=== PATIENT | male | born 1995 | race Caucasian/White ===

== ENCOUNTER 2019-06-16 09:27 | Inpatient (IN) | payer OTHER ==
[2019-06-16 09:50] VITALS: BMI 41.3
--- NOTE | 2019-06-16 10:31 | HP ---
"COWS - Scale Resting Pulse: 1= [place] 81-100 Sweatin=Flushed/Facial Moisture Restless Observation: 0= Sits Still Pupil Size: 0= Normal to Room Light Bone or Joint Aches: 2= Severe Diffuse Aches Runny Nose/ Eye Tearin= Runny Nose/Eyes GI Upset > 30mins: 1= Stomach Cramp Tremor Observation: 0= None Yawning Observation: 0= None Anxiety or Irritability: 2=Irritable/Anxious Goose Flesh Skin: 0=Smooth Skin COWS Score: 10 CIWA Score Nausea/Vomitin-No Nausea/No Vomiting Muscle Tremors: None Anxiety: 4-Mod. Anxious/Guarded Agitation: 1-Slight > Activity Paroxysmal Sweats: 4-Forehead w/Sweat Beads Orientation: 0-Oriented Tacttile Disturbances: 0-None Auditory Disturbances: 0-None Visual Disturbances: 2-Mild Sensitivity Headache: 0-None Present CIWA-Ar Total Score: 11 - Admission Criteria OASAS Guidelines: Admission for Medically Managed Detox: Requires at least one of the followin. CIWA greater than 12 2. Seizures within the past 24 hours 3. Delirium tremens within the past 24 hours 4. Hallucinations within the past 24 hours 5. Acute intervention needed for co occurring medical disorder 6. Acute intervention needed for co occurring psychiatric disorder 7. Severe withdrawal that cannot be handled at a lower level of care (continued vomiting, continued diarrhea, abnormal vital signs) requiring intravenous medication and/or fluids 8. Admission ROS [facility] Allergies/Adverse Reactions: Allergies Allergy/AdvReac Type Severity Reaction Status Date / Time Penicillins Allergy Swelling Verified 06/16/19 09:40 History of Present Illness: pt states he was referred by [facility] , reports use of heroin and alcohol heroin since 2 years ago , percocet 7-8 yrs ago after foot frx , current daily use 1 bundle heroin via inhalation , latest use 3 am , denies od . etoh - 2 x 6-pk and 1 bottle vodka /day since 6-7 mo ago , first age of use 11 . starts drinking in the mornings, denies blackouts/ seizures , tremors occasional fentanyl- denies oxy- admits to use . bzo - denies bup -reports tried illicit use 2 days ago tobacco : 1.5 ppd PMHx : denies pshx : foot frx R w/ orif 2/2 fall on ice . shx : homeless , unemployed , finances habit from friends / family , denies legal issues , denies dui/ dwi , no children . Search Terms: audrey vazquez, 1995 Search Date: 06/16/2019 10:25:26 AM This report was requested by: Princess Ojeda | Reference #: [id number] There are no results for the search terms that you entered. Exam Limitations: No Limitations - Ebola screening Have you traveled outside of the country in the last 21 days: No Have you had contact with anyone from an Ebola affected area: No Do you have a fever: No - Review of Systems Constitutional: Loss of Appetite EENT: reports: No Symptoms Reported Respiratory: reports: SOB with Exertion Cardiac: reports: No Symptoms Reported GI: reports: Constipated : reports: Other (hesitancy) Musculoskeletal: reports: See HPI, Back Pain, Muscle Pain Integumentary: reports: No Symptoms Reported Neuro: reports: No Symptoms reported Endocrine: reports: No Symptoms Reported Psychiatric: reports: Orientated x3, other (adhd) Patient History - Smoking Cessation Smoking history: Current every day smoker Have you smoked in the past 12 months: Yes Hx Chewing Tobacco Use: No Initiated information on smoking cessation: Yes 'Breaking Loose' booklet given: 06/16/19 - Substances abused Alcohol Substance route: Oral Frequency: Daily Amount used: 1 bottle colby diaz & (2) 6 pk heineken Age of first use: 11 Date of last use: 06/16/19 Heroin Substance route: Inhalation Frequency: Daily Amount used: 1 - 1 1/2 bundle Age of first use: 21 Date of last use: 06/16/19 Admission Physical Exam BHS - Vital Signs Vital Signs: Vital Signs - 24 hr 06/16/19 09:40 Temperature 97.3 F L Pulse Rate 95 H Respiratory 20 Rate Blood Pressure 161/104 H - Physical General Appearance: Yes: Mild Distress, Intoxicated, Sweating, Anxious HEENTM: Yes: EOMI, Hearing grossly Normal, Normocephalic, Normal Voice Respiratory: Yes: Chest Non-Tender, Lungs Clear, Normal Breath Sounds, No Respiratory Distress, No Accessory Muscle Use Neck: Yes: No masses,lesions,Nodules, Trachea in good position Cardiology: Yes: Regular Rhythm, Regular Rate, S1, S2 Abdominal: Yes: Normal Bowel Sounds, Non Tender, Flat, Soft Musculoskeletal: Yes: full range of Motion, Gait Steady Extremities: Yes: Normal Capillary Refill, Normal Inspection, Normal Range of Motion, Non-Tender Neurological: Yes: Fully Oriented, Alert, Motor Strength 5/5, Normal Mood/Affect Integumentary: Yes: Warm - Diagnostic (1) Alcohol use disorder Current Visit: Yes Status: Chronic (2) Opioid dependence Current Visit: Yes Status: Chronic Qualifiers: Substance use status: uncomplicated Qualified Code(s): F11.20 - Opioid dependence, uncomplicated (3) Nicotine dependence Current Visit: Yes Status: Chronic Qualifiers: Nicotine product type: cigarettes Breathalyzer - Breathalyzer Breathalyzer: 0.013 Urine Drug Screen - Test Device Lot number: [id number] Expiration date: 02/13/21 - Control Is test valid?: Yes - Results Drug screen NEGATIVE: No Urine drug screen results: FEN-Fentanyl, MOP-Opiates, OXY-Oxycodone, BZO- Benzodiazepines, BUP-Suboxone Inpatient Rehab Admission - Rehab Decision to Admit Inpatient rehab admission?: No"
[2019-06-16] MEDS ORDERED: MAGNESIUM CITRATE 300 ML BOTTLE PO PRN (10:45)
[2019-06-16] MEDS ORDERED: IBUPROFEN 400 MG TABLET (FP) PO PRN (10:45)
[2019-06-16] MEDS ORDERED: MAG HYDROX/AL HYDROX/SIMETH 30 ML UNIT-DOSE CUP PO PRN (10:45)
[2019-06-16] MEDS ORDERED: MAGNESIUM HYDROX 2400MG/30ML ORAL SUSPENSION 30 ML CUP PO PRN (10:45)
[2019-06-16] MEDS ORDERED: MENTHOL/PHENOL 1 EACH UD MM PRN (10:45)
[2019-06-16] MEDS ORDERED: BISMUTH SUBSALICYLATE 262 MG/15 ML BTL PO PRN (10:45)
[2019-06-16] MEDS ORDERED: ACETAMINOPHEN 325 MG TABLET (FP) PO PRN ×2 (10:45)
[2019-06-16] MEDS ORDERED: cloNIDine HCL 0.1 MG TABLET PO PRN (10:46)
[2019-06-16] MEDS ORDERED: METHADONE HCL 10 MG TABLET (FOR DETOX USE ONLY) PO ONE (14:00)
[2019-06-16] MEDS: diazePAM 5 MG TABLET PO SCH ×2 (14:03→22:26)
[2019-06-16 16:12] LABS: HEMATOCRIT 45.9 % (35.4-49); HEMOGLOBIN 16.2 GM/dL (11.7-16.9); MCH 30.4 pg (25.7-33.7); MCHC 35.4 g/dl (32.0-35.9); MEAN CELL VOLUME 85.9 fl (80-96); MEAN PLT VOLUME 7.1 fl (7.5-11.1); PLATELET COUNT 288 K/MM3 (134-434); RBC 5.34 M/mm3 (4.00-5.60); RDW 12.9 % (11.9-15.9); WHITE BLOOD COUNT 9.1 K/mm3 (4.0-10.0)
[2019-06-16 16:29] LABS: ALBUMIN 4.2 g/dl (3.4-5.0); BILIRUBIN,TOTAL 0.4 mg/dL (0.2-1); CALCIUM 9.1 mg/dL (8.5-10.1); CREATININE 0.8 mg/dL (0.55-1.3); POTASSIUM 3.5 mmol/L (3.5-5.1); TOT PROT 7.2 g/dl (6.4-8.2)
[2019-06-16] MEDS: NICOTINE 21 MG/24 HOURS TOPICAL PATCH TD SCH (16:38)
[2019-06-16] MEDS: NICOTINE POLACRILEX 4 MG GUM BUC PRN (16:39)
[2019-06-16] MEDS: hydrOXYzine PAMOATE 25 MG CAPSULE (FP) PO PRN (16:40)
[2019-06-16] MEDS: THIAMINE HCL 100 MG TABLET (FP) PO SCH (22:26)
[2019-06-17] MEDS: diazePAM 5 MG TABLET PO SCH ×3 (05:22→21:43)
[2019-06-17] MEDS: NICOTINE POLACRILEX 4 MG GUM BUC PRN ×4 (05:24→18:35)
[2019-06-17] MEDS ORDERED: METHADONE HCL 5 MG TABLET (FOR DETOX USE ONLY) ONE (08:45)
[2019-06-17] MEDS ORDERED: METHADONE HCL 10 MG TABLET (FOR DETOX USE ONLY) ONE (08:46)
[2019-06-17] MEDS: NICOTINE 21 MG/24 HOURS TOPICAL PATCH TD SCH (09:11)
[2019-06-17] MEDS: PRENATAL VITAMINS W/ FOLIC ACID TABLET (FP) PO SCH (09:12)
[2019-06-17] MEDS ORDERED: METHADONE (DETOX) 20 MG, METHADONE (DETOX) 5 MG PO ONE (10:00)
[2019-06-17] MEDS: hydrOXYzine PAMOATE 25 MG CAPSULE (FP) PO PRN ×2 (11:47→18:35)
--- NOTE | 2019-06-17 14:28 | PN ---
S CIWA - CIWA Score Nausea/Vomitin-Mild Nausea/No Vomiting Muscle Tremors: 1-None Visible, but [place] Anxiety: 1-Mildly Anxious Agitation: 1-Slight > Activity Paroxysmal Sweats: 3 Orientation: 0-Oriented Tacttile Disturbances: 1-Very Mild Itch/Numbness Auditory Disturbances: 0-None Visual Disturbances: 0-None Headache: 0-None Present CIWA-Ar Total Score: 8 BHS COWS - Scale Resting Pulse: 1= [place] 81-100 Sweatin= Chills/Flushing Restless Observation: 1= Difficult to Sit Still Pupil Size: 1= Pupils >than Normal Bone or Joint Aches: 1= Mild Discomfort Runny Nose/ Eye Tearin= None GI Upset > 30mins: 1= Stomach Cramp Tremor Observation of Outstretched Hands: 1= Tremor [place], Not Seen Yawning Observation: 0= None Anxiety or Irritability: 1=Feels Anxious/Irritable Goose Flesh Skin: 0=Smooth Skin COWS Score: 8 [facility] Progress Note (SOAP) Subjective: interrupted sleep, sweats, Objective: 06/17/19 14:27 Vital Signs Temperature 97.9 F 06/17/19 13:50 Pulse Rate 87 06/17/19 13:50 Respiratory Rate 18 06/17/19 13:50 Blood Pressure 131/93 06/17/19 13:50 O2 Sat by Pulse Oximetry (%) Laboratory Tests 06/16/19 06/16/19 06/16/19 14:00 14:00 14:00 WBC 9.1 RBC 5.34 Hgb 16.2 Hct 45.9 MCV 85.9 MCH 30.4 MCHC 35.4 RDW 12.9 Plt Count 288 MPV 7.1 L Sodium 137 Potassium 3.5 Chloride 102 Carbon Dioxide 27 Anion Gap 8 BUN 13.0 Creatinine 0.8 Est GFR (CKD-EPI)AfAm 142.89 Est GFR (CKD-EPI)NonAf 123.29 Random Glucose 100 Calcium 9.1 Total Bilirubin 0.4 AST 17 ALT 41 Alkaline Phosphatase 74 Total Protein 7.2 Albumin 4.2 RPR Titer Nonreactive pt aox3 , cooperative in nad ambulating Assessment: 06/17/19 14:28 withdrawal sx's Plan: cont. detox increase fluids
[2019-06-17] MEDS: THIAMINE HCL 100 MG TABLET (FP) PO SCH (21:43)
[2019-06-18] MEDS: diazePAM 5 MG TABLET PO SCH ×2 (05:42→17:35)
--- NOTE | 2019-06-18 09:55 | PN ---
[facility] CIWA - CIWA Score Nausea/Vomitin-No Nausea/No Vomiting Muscle Tremors: 2 Anxiety: 2 Agitation: 3 Paroxysmal Sweats: 2 Orientation: 0-Oriented Tacttile Disturbances: 0-None Auditory Disturbances: 0-None Visual Disturbances: 0-None Headache: 0-None Present CIWA-Ar Total Score: 9 [facility]HS COWS - Scale Resting Pulse: 0= [place] 80 or Below Sweatin= Chills/Flushing Restless Observation: 1= Difficult to Sit Still Pupil Size: 0= Normal to Room Light Bone or Joint Aches: 2= Severe Diffuse Aches Runny Nose/ Eye Tearin= Runny Nose/Eyes GI Upset > 30mins: 0= None Tremor Observation of Outstretched Hands: 1= Tremor [place], Not Seen Yawning Observation: 1= 1-2x During Session Anxiety or Irritability: 1=Feels Anxious/Irritable Goose Flesh Skin: 0=Smooth Skin COWS Score: 9 [facility] Progress Note (SOAP) Subjective: sweats anxiety shakes irritable agitation body aches Objective: 06/18/19 09:56 Vital Signs Temperature 97.9 F 06/18/19 09:24 Pulse Rate 80 06/18/19 09:24 Respiratory Rate 18 06/18/19 09:24 Blood Pressure 136/79 06/18/19 09:24 O2 Sat by Pulse Oximetry (%) Laboratory Tests 06/16/19 06/16/19 06/16/19 14:00 14:00 14:00 WBC 9.1 RBC 5.34 Hgb 16.2 Hct 45.9 MCV 85.9 MCH 30.4 MCHC 35.4 RDW 12.9 Plt Count 288 MPV 7.1 L Sodium 137 Potassium 3.5 Chloride 102 Carbon Dioxide 27 Anion Gap 8 BUN 13.0 Creatinine 0.8 Est GFR (CKD-EPI)AfAm 142.89 Est GFR (CKD-EPI)NonAf 123.29 Random Glucose 100 Calcium 9.1 Total Bilirubin 0.4 AST 17 ALT 41 Alkaline Phosphatase 74 Total Protein 7.2 Albumin 4.2 RPR Titer Nonreactive labs noted aaox3 ambulating no acute distress Assessment: 06/18/19 09:57 withdrawals Plan: continue detox increase fluids
[2019-06-18] MEDS ORDERED: METHADONE HCL 10 MG TABLET (FOR DETOX USE ONLY) PO ONE (10:00)
[2019-06-18] MEDS: PRENATAL VITAMINS W/ FOLIC ACID TABLET (FP) PO SCH (10:21)
[2019-06-18] MEDS: NICOTINE 21 MG/24 HOURS TOPICAL PATCH TD SCH (10:22)
[2019-06-18] MEDS: hydrOXYzine PAMOATE 25 MG CAPSULE (FP) PO PRN ×2 (12:22→22:54)
[2019-06-18] MEDS: NICOTINE POLACRILEX 4 MG GUM BUC PRN ×2 (12:22→17:36)
[2019-06-18] MEDS: diazePAM 5 MG TABLET PO PRN ×2 (13:01→22:52)
[2019-06-18] MEDS ORDERED: cloNIDine HCL 0.1 MG TABLET PO SCH (22:00)
[2019-06-18] MEDS: MELATONIN 5 MG TABLETS PO PRN (22:53)
[2019-06-18] MEDS: THIAMINE HCL 100 MG TABLET (FP) PO SCH (22:53)
[2019-06-19] MEDS ORDERED: diazePAM 5 MG TABLET PO ONE (06:00)
[2019-06-19] MEDS ORDERED: METHADONE (DETOX) 10 MG, METHADONE (DETOX) 5 MG PO ONE (10:00)
[2019-06-19] MEDS ORDERED: METHADONE HCL 10 MG TABLET (FOR DETOX USE ONLY) ONE (10:19)
[2019-06-19] MEDS ORDERED: METHADONE HCL 5 MG TABLET (FOR DETOX USE ONLY) ONE (10:19)
[2019-06-19] MEDS: PRENATAL VITAMINS W/ FOLIC ACID TABLET (FP) PO SCH (10:39)
[2019-06-19] MEDS: NICOTINE 21 MG/24 HOURS TOPICAL PATCH TD SCH (10:40)
[2019-06-19] MEDS: hydrOXYzine PAMOATE 25 MG CAPSULE (FP) PO PRN (10:46)
[2019-06-19] MEDS: NICOTINE POLACRILEX 4 MG GUM BUC PRN (11:06)
[2019-06-19] MEDS: diazePAM 5 MG TABLET PO PRN ×2 (13:28→22:40)
[2019-06-19] MEDS: METHOCARBAMOL 500 MG TABLET PO PRN ×2 (13:28→22:38)
[2019-06-19] MEDS ORDERED: cloNIDine HCL 0.1 MG TABLET PO PRN (16:03)
--- NOTE | 2019-06-19 16:06 | PN ---
[facility] CIWA - CIWA Score Nausea/Vomitin-No Nausea/No Vomiting Muscle Tremors: 2 Anxiety: 2 Agitation: 1-Slight > Activity Paroxysmal Sweats: 2 Orientation: 0-Oriented Tacttile Disturbances: 0-None Auditory Disturbances: 0-None Visual Disturbances: 0-None Headache: 0-None Present CIWA-Ar Total Score: 7 BHS COWS - Scale Resting Pulse: 1= [place] 81-100 Sweatin= Chills/Flushing Restless Observation: 0= Sits Still Pupil Size: 0= Normal to Room Light Bone or Joint Aches: 1= Mild Discomfort Runny Nose/ Eye Tearin= None GI Upset > 30mins: 1= Stomach Cramp Tremor Observation of Outstretched Hands: 2= Slight Tremor Visible Yawning Observation: 0= None Anxiety or Irritability: 2=Irritable/Anxious Goose Flesh Skin: 0=Smooth Skin COWS Score: 8 [facility] Progress Note (SOAP) Subjective: Feels ok, medication working Objective: 06/19/19 16:02 Last Vital Signs Temp Pulse Resp BP Pulse Ox 97.7 F 86 18 148/77 06/19/19 14:00 06/19/19 14:00 06/19/19 14:00 06/19/19 14:00 Elevated b/p: denies htn (started on clonidine prn) Laboratory Tests 06/16/19 06/16/19 06/16/19 14:00 14:00 14:00 WBC 9.1 RBC 5.34 Hgb 16.2 Hct 45.9 MCV 85.9 MCH 30.4 MCHC 35.4 RDW 12.9 Plt Count 288 MPV 7.1 L Sodium 137 Potassium 3.5 Chloride 102 Carbon Dioxide 27 Anion Gap 8 BUN 13.0 Creatinine 0.8 Est GFR (CKD-EPI)AfAm 142.89 Est GFR (CKD-EPI)NonAf 123.29 Random Glucose 100 Calcium 9.1 Total Bilirubin 0.4 AST 17 ALT 41 Alkaline Phosphatase 74 Total Protein 7.2 Albumin 4.2 RPR Titer Nonreactive Labs reviewed Assessment: 06/19/19 16:05 Withdrawal sxs Plan: Continue detox Encouraged PO water intake Elevated b/p: denies htn; most likely due to withdrawal, start clonidine 0.1mg PO q8hr prn if b/p > 140/90
[2019-06-19] MEDS: THIAMINE HCL 100 MG TABLET (FP) PO SCH (22:38)
[2019-06-19] MEDS: MELATONIN 5 MG TABLETS PO PRN (22:38)
[2019-06-20] MEDS ORDERED: METHADONE HCL 10 MG TABLET (FOR DETOX USE ONLY) PO ONE (10:00)
[2019-06-20] MEDS: NICOTINE 21 MG/24 HOURS TOPICAL PATCH TD SCH (10:30)
[2019-06-20] MEDS: PRENATAL VITAMINS W/ FOLIC ACID TABLET (FP) PO SCH (10:30)
[2019-06-20] MEDS: diazePAM 5 MG TABLET PO PRN ×2 (10:34→19:48)
--- NOTE | 2019-06-20 11:54 | PN ---
[facility] CIWA - CIWA Score Nausea/Vomitin-Mild Nausea/No Vomiting Muscle Tremors: 1-None Visible, but [place] Anxiety: 2 Agitation: 2 Paroxysmal Sweats: No Perspiration Orientation: 0-Oriented Tacttile Disturbances: 1-Very Mild Itch/Numbness Auditory Disturbances: 0-None Visual Disturbances: 0-None Headache: 1-Very Mild CIWA-Ar Total Score: 8 BHS COWS - Scale Resting Pulse: 2= [place] 101-120 Sweatin= No chills or [place] Restless Observation: 1= Difficult to Sit Still Pupil Size: 1= Pupils >than Normal Bone or Joint Aches: 1= Mild Discomfort Runny Nose/ Eye Tearin= Nasal Congestion GI Upset > 30mins: 1= Stomach Cramp Tremor Observation of Outstretched Hands: 1= Tremor [place], Not Seen Yawning Observation: 0= None Anxiety or Irritability: 2=Irritable/Anxious Goose Flesh Skin: 0=Smooth Skin COWS Score: 10 S Progress Note (SOAP) Subjective: alert,irritable,anxious,interrupted sleep,pain in the body Objective: 06/20/19 11:53 Vital Signs Temperature 97.7 F 06/20/19 09:20 Pulse Rate 106 H 06/20/19 09:20 Respiratory Rate 18 06/20/19 09:20 Blood Pressure 153/77 06/20/19 09:20 O2 Sat by Pulse Oximetry (%) Assessment: 06/20/19 11:53 withdrawal symptom Plan: continue detox methadone regimen,discharge in am
[2019-06-20] MEDS: hydrOXYzine PAMOATE 25 MG CAPSULE (FP) PO PRN ×2 (13:25→22:19)
[2019-06-20] MEDS: NICOTINE POLACRILEX 4 MG GUM BUC PRN (19:48)
[2019-06-20] MEDS: METHOCARBAMOL 500 MG TABLET PO PRN (22:19)
[2019-06-20] MEDS: THIAMINE HCL 100 MG TABLET (FP) PO SCH (22:19)
[2019-06-20] MEDS: MELATONIN 5 MG TABLETS PO PRN (22:19)
[2019-06-21] MEDS ORDERED: METHADONE HCL 5 MG TABLET (FOR DETOX USE ONLY) PO ONE (06:00)
--- NOTE | 2019-06-21 08:31 | PN ---
BHS COWS - Scale Resting Pulse: 0= [place] 80 or Below Sweatin= No chills or Flushing Restless Observation: 0= Sits Still Pupil Size: 0= Normal to Room Light Bone or Joint Aches: 1= Mild Discomfort Runny Nose/ Eye Tearin= None GI Upset > 30mins: 0= None Tremor Observation of Outstretched Hands: 0= None Yawning Observation: 0= None Anxiety or Irritability: 1=Feels Anxious/Irritable Goose Flesh Skin: 0=Smooth Skin COWS Score: 2 [facility] Progress Note (SOAP) Subjective: alert,no complaint Objective: 06/21/19 08:30 Vital Signs Temperature 97.7 F 06/21/19 07:33 Pulse Rate 58 L 06/21/19 07:33 Respiratory Rate 18 06/21/19 07:33 Blood Pressure 136/75 06/21/19 07:33 O2 Sat by Pulse Oximetry (%) Assessment: 06/21/19 08:30 detox completed,no withdrawal symptom Plan: discharge today,follow up with after care program as arrangement
--- NOTE | 2019-06-21 08:34 | DS ---
[facility] Detox Discharge Summary Admission Date: 06/16/19 Discharge Date: 06/21/19 - History Present History: Opioid Dependence Additional Comments: follow up with after care program as arrangement Pertinent Past History: nicotine dependence - Physical Exam Results Vital Signs: Vital Signs Temperature 97.7 F 06/21/19 07:33 Pulse Rate 58 L 06/21/19 07:33 Respiratory Rate 18 06/21/19 07:33 Blood Pressure 136/75 06/21/19 07:33 O2 Sat by Pulse Oximetry (%) Pertinent Admission Physical Exam Findings: Vital Signs Temperature 97.7 F 06/21/19 07:33 Pulse Rate 58 L 06/21/19 07:33 Respiratory Rate 18 06/21/19 07:33 Blood Pressure 136/75 06/21/19 07:33 O2 Sat by Pulse Oximetry (%) Laboratory Last Values WBC 9.1 K/mm3 (4.0-10.0) 06/16/19 14:00 RBC 5.34 M/mm3 (4.00-5.60) 06/16/19 14:00 Hgb 16.2 GM/dL (11.7-16.9) 06/16/19 14:00 Hct 45.9 % (35.4-49) 06/16/19 14:00 MCV 85.9 fl (80-96) 06/16/19 14:00 MCH 30.4 pg (25.7-33.7) 06/16/19 14:00 MCHC 35.4 g/dl (32.0-35.9) 06/16/19 14:00 RDW 12.9 % (11.9-15.9) 06/16/19 14:00 Plt Count 288 K/MM3 (134-434) 06/16/19 14:00 MPV 7.1 fl (7.5-11.1) L 06/16/19 14:00 Sodium 137 mmol/L (136-145) 06/16/19 14:00 Potassium 3.5 mmol/L (3.5-5.1) 06/16/19 14:00 Chloride 102 mmol/L (98-107) 06/16/19 14:00 Carbon Dioxide 27 mmol/L (21-32) 06/16/19 14:00 Anion Gap 8 MMOL/L (8-16) 06/16/19 14:00 BUN 13.0 mg/dL (7-18) 06/16/19 14:00 Creatinine 0.8 mg/dL (0.55-1.3) 06/16/19 14:00 Est GFR (CKD-EPI)AfAm 142.89 06/16/19 14:00 Est GFR (CKD-EPI)NonAf 123.29 06/16/19 14:00 Random Glucose 100 mg/dL (74-106) 06/16/19 14:00 Calcium 9.1 mg/dL (8.5-10.1) 06/16/19 14:00 Total Bilirubin 0.4 mg/dL (0.2-1) 06/16/19 14:00 AST 17 U/L (15-37) 06/16/19 14:00 ALT 41 U/L (13-61) 06/16/19 14:00 Alkaline Phosphatase 74 U/L (45-117) 06/16/19 14:00 Total Protein 7.2 g/dl (6.4-8.2) 06/16/19 14:00 Albumin 4.2 g/dl (3.4-5.0) 06/16/19 14:00 RPR Titer Nonreactive (NONREACTIVE) 06/16/19 14:00 Vital Signs Temperature 97.7 F 06/21/19 07:33 Pulse Rate 58 L 06/21/19 07:33 Respiratory Rate 18 06/21/19 07:33 Blood Pressure 136/75 06/21/19 07:33 O2 Sat by Pulse Oximetry (%) - Treatment Hospital Course: Detox Protocol Followed, Detoxed Safely, Responded well, Discharged Condition Good - Medication Discharge Medications: Ambulatory Orders NK [No Known Home Medication] 06/16/19 - Diagnosis (1) Alcohol use disorder Current Visit: Yes Status: Chronic (2) Nicotine dependence Current Visit: Yes Status: Chronic Qualifiers: Nicotine product type: cigarettes (3) Opioid dependence Current Visit: Yes Status: Chronic Qualifiers: Substance use status: uncomplicated Qualified Code(s): F11.20 - Opioid dependence, uncomplicated - AMA Did Patient Leave Against Medical Advice: No
[2019-06-21 09:24] VITALS: BP 149/91; PULSE 75; TEMP 97.3
== END 2019-06-21 09:22 | disposition home or self-care (01) | DRG 773 ==
LOC: YASAS 09:27 → Y6N 11:19
PROVIDERS: ADMIT Allergy & Immunology; ATTEND Allergy & Immunology
PROC: HZ2ZZZZ Detoxification Services for Substance Abuse Treatment (ICD-10-PCS; principal; 2019-06-16)
DX: F11.23 Opioid dependence with withdrawal (principal); F10.230 Alcohol dependence with withdrawal, uncomplicated; F17.210 Nicotine dependence, cigarettes, uncomplicated; R03.0 Elevated blood-pressure reading, without diagnosis of hypertension; Z88.0 Allergy status to penicillin; Z56.0 Unemployment, unspecified; Z59.0 Homelessness
CPT/HCPCS: 36415; 80053; 85027; 86593; J0735

== ENCOUNTER 2020-07-07 23:12 | Inpatient (IN) | payer OTHER ==
[2020-07-07 20:00] VITALS: BMI 40.7
[~2020-07-07 23:12] MED LIST: ACETAMINOPHEN 325 MG TABLET (FP) PO PRN; BISMUTH SUBSALICYLATE 524 MG/30 ML UD PO PRN; IBUPROFEN 400 MG TABLET (FP) PO PRN; MAG HYDROX/AL HYDROX/SIMETH 30 ML UNIT-DOSE CUP PO PRN; MAGNESIUM CITRATE 300 ML BOTTLE PO PRN; MAGNESIUM HYDROX 2400MG/30ML ORAL SUSPENSION 30 ML CUP PO PRN; MENTHOL/PHENOL 1 EACH UD MM PRN; ONDANSETRON *ODT* 4 MG TABLET SL PRN; chlordiazePOXIDE HCL 25 MG CAPSULE PO PRN; cloNIDine HCL 0.1 MG TABLET PO PRN
[2020-07-07] MEDS ORDERED: METHADONE HCL 10 MG TABLET (FOR DETOX USE ONLY) PO ONE (23:55)
[2020-07-08] MEDS: chlordiazePOXIDE HCL 25 MG CAPSULE PO SCH ×5 (00:02→22:03)
[2020-07-08] MEDS ORDERED: METHADONE (DETOX) 20 MG, METHADONE (DETOX) 5 MG PO ONE (10:00)
[2020-07-08] MEDS: PRENATAL VITAMINS W/ FOLIC ACID TABLET (FP) PO SCH (10:32)
[2020-07-08] MEDS: NICOTINE 21 MG/24 HOURS TOPICAL PATCH TD SCH (10:33)
[2020-07-08] MEDS: NICOTINE POLACRILEX 2 MG GUM BUC PRN (10:34)
[2020-07-08 12:32] LABS: HEMATOCRIT 42.2 % (35.4-49); HEMOGLOBIN 14.6 GM/dL (11.7-16.9); MCH 29.8 pg (25.7-33.7); MCHC 34.5 g/dl (32.0-35.9); MEAN CELL VOLUME 86.4 fl (80-96); MEAN PLT VOLUME 7.1 fl (7.5-11.1); PLATELET COUNT 277 K/MM3 (134-434); RBC 4.88 M/mm3 (4.00-5.60); RDW 13.4 % (11.9-15.9); WHITE BLOOD COUNT 10.6 K/mm3 (4.0-10.0)
[2020-07-08 12:49] LABS: POTASSIUM 3.4 mmol/L (3.5-5.1)
[2020-07-08 13:03] LABS: ALBUMIN 3.6 g/dl (3.4-5.0); BLOOD UREA NITROGEN 9.4 mg/dL (7-18)
[2020-07-08 13:04] LABS: CALCIUM 8.5 mg/dL (8.5-10.1)
[2020-07-08 13:08] LABS: CREATININE 0.8 mg/dL (0.55-1.3)
[2020-07-08 13:09] LABS: BILIRUBIN,TOTAL 0.4 mg/dL (0.2-1); TOT PROT 6.3 g/dl (6.4-8.2)
[2020-07-08] MEDS ORDERED: POTASSIUM CHLORIDE TABS 20 MEQ TABLET.ER (FP) PO ONE (16:15)
[2020-07-08] MEDS: THIAMINE HCL 100 MG TABLET (FP) PO SCH (22:03)
[2020-07-08] MEDS: MELATONIN 5 MG TABLETS PO SCH (22:03)
[2020-07-09] MEDS: chlordiazePOXIDE HCL 25 MG CAPSULE PO SCH ×4 (05:41→22:00)
[2020-07-09] MEDS ORDERED: METHADONE HCL 10 MG TABLET (FOR DETOX USE ONLY) PO ONE (10:00)
[2020-07-09] MEDS: NICOTINE 21 MG/24 HOURS TOPICAL PATCH TD SCH (10:16)
[2020-07-09] MEDS: PRENATAL VITAMINS W/ FOLIC ACID TABLET (FP) PO SCH (10:17)
[2020-07-09 10:23] LABS: POTASSIUM 4.1 mmol/L (3.5-5.1)
[2020-07-09 10:25] LABS: BASO % 0.5 % (0-2.0); EOS % 3.8 % (0-4.5); HEMATOCRIT 41.9 % (35.4-49); HEMOGLOBIN 14.2 GM/dL (11.7-16.9); LYMPH % 39.7 % (8-40); MCH 29.7 pg (25.7-33.7); MCHC 33.9 g/dl (32.0-35.9); MEAN CELL VOLUME 87.5 fl (80-96); MONO % 7.6 % (3.8-10.2); NEUT % 48.4 % (42.8-82.8); PLATELET COUNT 241 K/MM3 (134-434); RBC 4.79 M/mm3 (4.00-5.60); RDW 13.7 % (11.9-15.9); WHITE BLOOD COUNT 6.5 K/mm3 (4.0-10.0)
[2020-07-09] MEDS: THIAMINE HCL 100 MG TABLET (FP) PO SCH (22:00)
[2020-07-09] MEDS: MELATONIN 5 MG TABLETS PO SCH (22:00)
[2020-07-09] MEDS: NICOTINE POLACRILEX 2 MG GUM BUC PRN (22:02)
[2020-07-10] MEDS ORDERED: chlordiazePOXIDE HCL 10 MG CAPSULE PO PRN
[2020-07-10] MEDS: chlordiazePOXIDE HCL 10 MG CAPSULE PO SCH ×4 (06:04→22:05)
[2020-07-10] MEDS: NICOTINE POLACRILEX 2 MG GUM BUC PRN (07:06)
[2020-07-10] MEDS ORDERED: METHADONE HCL 5 MG TABLET (FOR DETOX USE ONLY) ONE (09:03)
[2020-07-10] MEDS ORDERED: METHADONE HCL 10 MG TABLET (FOR DETOX USE ONLY) ONE (09:03)
[2020-07-10] MEDS ORDERED: METHADONE (DETOX) 10 MG, METHADONE (DETOX) 5 MG PO ONE (10:00)
[2020-07-10] MEDS: NICOTINE 21 MG/24 HOURS TOPICAL PATCH TD SCH (10:08)
[2020-07-10] MEDS: PRENATAL VITAMINS W/ FOLIC ACID TABLET (FP) PO SCH (10:08)
[2020-07-10] MEDS: METHOCARBAMOL 500 MG TABLET PO PRN (22:05)
[2020-07-10] MEDS: MELATONIN 5 MG TABLETS PO SCH (22:05)
[2020-07-10] MEDS: THIAMINE HCL 100 MG TABLET (FP) PO SCH (22:05)
[2020-07-11] MEDS: chlordiazePOXIDE HCL 10 MG CAPSULE PO SCH ×2 (05:31→17:19)
[2020-07-11] MEDS ORDERED: METHADONE HCL 10 MG TABLET (FOR DETOX USE ONLY) PO ONE (10:00)
[2020-07-11] MEDS: NICOTINE 21 MG/24 HOURS TOPICAL PATCH TD SCH (10:20)
[2020-07-11] MEDS: cloNIDine HCL 0.1 MG TABLET PO SCH ×2 (10:21→21:10)
[2020-07-11] MEDS: PRENATAL VITAMINS W/ FOLIC ACID TABLET (FP) PO SCH (10:21)
[2020-07-11] MEDS: NICOTINE POLACRILEX 2 MG GUM BUC PRN (10:23)
[2020-07-11] MEDS: METHOCARBAMOL 500 MG TABLET PO PRN (11:56)
[2020-07-11] MEDS: MELATONIN 5 MG TABLETS PO SCH (21:10)
[2020-07-11] MEDS: THIAMINE HCL 100 MG TABLET (FP) PO SCH (21:10)
[2020-07-12] MEDS ORDERED: chlordiazePOXIDE HCL 10 MG CAPSULE PO ONE (05:00)
[2020-07-12] MEDS ORDERED: METHADONE HCL 5 MG TABLET (FOR DETOX USE ONLY) PO ONE (06:00)
[2020-07-12 09:17] VITALS: BP 125/74; PULSE 78; TEMP 98.1
[2020-07-12] MEDS: NICOTINE 21 MG/24 HOURS TOPICAL PATCH TD SCH (09:21)
[2020-07-12] MEDS: PRENATAL VITAMINS W/ FOLIC ACID TABLET (FP) PO SCH (09:21)
[2020-07-12] MEDS: cloNIDine HCL 0.1 MG TABLET PO SCH (09:21)
== END 2020-07-12 11:00 | disposition home or self-care (01) | DRG 773 ==
LOC: ASASADMIT 23:12 → Y6N 23:36
PROVIDERS: ADMIT Allergy & Immunology; ATTEND Allergy & Immunology
PROC: HZ2ZZZZ Detoxification Services for Substance Abuse Treatment (ICD-10-PCS; principal; 2020-07-07)
DX: F11.23 Opioid dependence with withdrawal (principal); F10.230 Alcohol dependence with withdrawal, uncomplicated; F17.210 Nicotine dependence, cigarettes, uncomplicated; D72.819 Decreased white blood cell count, unspecified; M54.5 Low back pain; G89.28 Other chronic postprocedural pain; R74.01 Elevation of levels of liver transaminase levels; Z88.0 Allergy status to penicillin; Z59.0 Homelessness
CPT/HCPCS: 36415; 80053; 84132; 84460; 85025; 85027; 86780; 93005; 93010; C9803; J0735; U0003

== ENCOUNTER 2022-02-22 18:40 | Inpatient (IN) | payer OTHER ==
[2022-02-22 19:38] VITALS: BMI 41.8
[2022-02-22] MEDS ORDERED: MAG HYDROX/AL HYDROX/SIMETH 30 ML UNIT-DOSE CUP PO PRN (19:51)
[2022-02-22] MEDS ORDERED: chlordiazePOXIDE HCL 25 MG CAPSULE PO PRN (19:51)
[2022-02-22] MEDS ORDERED: ACETAMINOPHEN 325 MG TABLET (FP) PO PRN ×2 (19:51)
[2022-02-22] MEDS ORDERED: methaDONE HCL 10 MG TABLET (FOR DETOX USE ONLY) PO ONE (19:51)
[2022-02-22] MEDS ORDERED: LOPERAMIDE HCL 2 MG CAPSULE PO PRN (19:51)
[2022-02-22] MEDS ORDERED: BENZOCAINE/MENTHOL (CHLORASEPTIC ) LOZENGE MM PRN (19:51)
[2022-02-22] MEDS ORDERED: DICYCLOMINE HCL 10 MG CAPSULE PO PRN (19:51)
[2022-02-22] MEDS ORDERED: BISMUTH SUBSALICYLATE 524 MG/30 ML PO PRN (19:51)
[2022-02-22] MEDS ORDERED: IBUPROFEN 400 MG TABLET (FP) PO PRN (19:51)
[2022-02-22] MEDS ORDERED: NALOXONE HCL (KLOXXADO) 8 MG SPRAY NS PRN (19:51)
[2022-02-22] MEDS ORDERED: MAGNESIUM HYDROX 2400MG/30ML ORAL SUSPENSION 30 ML CUP PO PRN (19:51)
[2022-02-22] MEDS ORDERED: MAGNESIUM CITRATE 300 ML BOTTLE PO PRN (19:51)
[2022-02-22] MEDS: THIAMINE HCL 100 MG TABLET (FP) PO SCH (21:00)
[2022-02-22] MEDS: cloNIDine HCL 0.1 MG TABLET PO PRN (21:45)
[2022-02-22] MEDS: METHOCARBAMOL 500 MG TABLET PO PRN (21:45)
[2022-02-22] MEDS: MELATONIN 5 MG TABLETS PO SCH (21:50)
[2022-02-22] MEDS: chlordiazePOXIDE HCL 25 MG CAPSULE PO SCH (23:54)
[2022-02-23] MEDS: chlordiazePOXIDE HCL 25 MG CAPSULE PO SCH ×4 (05:16→22:07)
[2022-02-23 09:07] LABS: HEMATOCRIT 41.9 % (35.4-49); HEMOGLOBIN 14.8 GM/dL (11.7-16.9); MCH 29.1 pg (25.7-33.7); MCHC 35.3 g/dl (32.0-35.9); MEAN CELL VOLUME 82.6 fl (80-96); MEAN PLT VOLUME 6.2 fl (7.5-11.1); PLATELET COUNT 242 10^3/uL (134-434); RBC 5.08 M/mm3 (4.00-5.60); RDW 13.2 % (11.9-15.9); WHITE BLOOD COUNT 8.1 K/mm3 (4.0-10.0)
[2022-02-23] MEDS ORDERED: methaDONE HCL 10 MG TABLET (FOR DETOX USE ONLY) ONE (09:11)
[2022-02-23 09:31] LABS: BLOOD UREA NITROGEN 13.6 mg/dL (7-18); CALCIUM 8.7 mg/dL (8.5-10.1)
[2022-02-23 09:32] LABS: ALBUMIN 3.4 g/dl (3.4-5.0)
[2022-02-23 09:35] LABS: CREATININE 0.7 mg/dL (0.55-1.3)
[2022-02-23 09:36] LABS: BILIRUBIN,TOTAL 0.5 mg/dL (0.2-1); TOT PROT 6.5 g/dl (6.4-8.2)
[2022-02-23] MEDS: PRENATAL VITAMINS W/ FOLIC ACID TABLET (FP) PO SCH (10:54)
[2022-02-23] MEDS: NICOTINE 7 MG/24 HOURS TOPICAL PATCH TD SCH (10:55)
[2022-02-23] MEDS: NICOTINE 10 MG CARTRIDGE (INHALER) IH PRN ×2 (14:58→20:26)
[2022-02-23] MEDS: cloNIDine HCL 0.1 MG TABLET PO PRN (15:12)
[2022-02-23] MEDS: METHOCARBAMOL 500 MG TABLET PO PRN (18:25)
[2022-02-23] MEDS: THIAMINE HCL 100 MG TABLET (FP) PO SCH (22:06)
[2022-02-23] MEDS: MELATONIN 5 MG TABLETS PO SCH (22:06)
[2022-02-24] MEDS: chlordiazePOXIDE HCL 25 MG CAPSULE PO SCH ×4 (05:24→22:09)
[2022-02-24] MEDS: METHOCARBAMOL 500 MG TABLET PO PRN (05:26)
[2022-02-24] MEDS ORDERED: methaDONE HCL 10 MG TABLET (FOR DETOX USE ONLY) PO ONE (10:00)
[2022-02-24] MEDS: IBUPROFEN 600 MG TABLET (FP) PO PRN ×2 (11:00→17:19)
[2022-02-24] MEDS: PRENATAL VITAMINS W/ FOLIC ACID TABLET (FP) PO SCH (11:00)
[2022-02-24] MEDS: NICOTINE 7 MG/24 HOURS TOPICAL PATCH TD SCH (11:04)
[2022-02-24] MEDS: NICOTINE 10 MG CARTRIDGE (INHALER) IH PRN ×2 (12:10→20:30)
[2022-02-24] MEDS: THIAMINE HCL 100 MG TABLET (FP) PO SCH (22:09)
[2022-02-24] MEDS: MELATONIN 5 MG TABLETS PO SCH (22:09)
[2022-02-24] MEDS: cloNIDine HCL 0.1 MG TABLET PO PRN (22:24)
[2022-02-25] MEDS ORDERED: chlordiazePOXIDE HCL 10 MG CAPSULE PO PRN
[2022-02-25] MEDS: chlordiazePOXIDE HCL 10 MG CAPSULE PO SCH ×4 (05:50→22:17)
[2022-02-25] MEDS ORDERED: methaDONE HCL 10 MG TABLET (FOR DETOX USE ONLY) ONE (09:31)
[2022-02-25] MEDS: METHOCARBAMOL 500 MG TABLET PO PRN (10:24)
[2022-02-25] MEDS: cloNIDine HCL 0.1 MG TABLET PO PRN (10:26)
[2022-02-25] MEDS: NICOTINE 7 MG/24 HOURS TOPICAL PATCH TD SCH (10:26)
[2022-02-25] MEDS: PRENATAL VITAMINS W/ FOLIC ACID TABLET (FP) PO SCH (10:26)
[2022-02-25] MEDS: NICOTINE 10 MG CARTRIDGE (INHALER) IH PRN ×3 (10:29→19:16)
[2022-02-25] MEDS: IBUPROFEN 600 MG TABLET (FP) PO PRN (13:29)
[2022-02-25] MEDS: hydrOXYzine PAMOATE 25 MG CAPSULE (FP) PO SCH ×2 (17:10→22:13)
[2022-02-25] MEDS: SUVOREXANT 10 MG TABLET PO PRN (22:14)
[2022-02-25] MEDS: THIAMINE HCL 100 MG TABLET (FP) PO SCH (22:15)
[2022-02-26] MEDS: chlordiazePOXIDE HCL 10 MG CAPSULE PO SCH ×2 (05:16→17:52)
[2022-02-26] MEDS: hydrOXYzine PAMOATE 25 MG CAPSULE (FP) PO SCH ×5 (05:16→23:50)
[2022-02-26] MEDS: NICOTINE 10 MG CARTRIDGE (INHALER) IH PRN ×4 (06:37→20:49)
[2022-02-26] MEDS ORDERED: methaDONE HCL 10 MG TABLET (FOR DETOX USE ONLY) PO ONE (10:00)
[2022-02-26] MEDS: METHOCARBAMOL 500 MG TABLET PO PRN ×2 (10:07→22:15)
[2022-02-26] MEDS: PRENATAL VITAMINS W/ FOLIC ACID TABLET (FP) PO SCH (10:08)
[2022-02-26] MEDS: NICOTINE 7 MG/24 HOURS TOPICAL PATCH TD SCH (10:08)
[2022-02-26] MEDS: cloNIDine HCL 0.1 MG TABLET PO PRN (13:54)
[2022-02-26] MEDS: IBUPROFEN 600 MG TABLET (FP) PO PRN (13:55)
[2022-02-26] MEDS: SUVOREXANT 10 MG TABLET PO PRN (22:14)
[2022-02-26] MEDS: THIAMINE HCL 100 MG TABLET (FP) PO SCH (22:15)
[2022-02-27] MEDS ORDERED: chlordiazePOXIDE HCL 10 MG CAPSULE PO ONE (05:00)
[2022-02-27] MEDS: hydrOXYzine PAMOATE 25 MG CAPSULE (FP) PO SCH ×2 (05:40→09:24)
[2022-02-27] MEDS: NICOTINE 10 MG CARTRIDGE (INHALER) IH PRN (09:05)
[2022-02-27] MEDS: PRENATAL VITAMINS W/ FOLIC ACID TABLET (FP) PO SCH (09:21)
[2022-02-27] MEDS: NICOTINE 7 MG/24 HOURS TOPICAL PATCH TD SCH (09:24)
[2022-02-27 09:45] VITALS: BP 143/69; PULSE 64; TEMP 97.6
== END 2022-02-27 10:10 | disposition home or self-care (01) | DRG 773 ==
LOC: YASAS 18:40 → Y6N 20:32
PROVIDERS: ADMIT Allergy & Immunology; ATTEND Surgery
PROC: HZ2ZZZZ Detoxification Services for Substance Abuse Treatment (ICD-10-PCS; principal; 2022-02-22)
DX: F11.23 Opioid dependence with withdrawal (principal); F10.230 Alcohol dependence with withdrawal, uncomplicated; F17.210 Nicotine dependence, cigarettes, uncomplicated; F19.280 Other psychoactive substance dependence with psychoactive substance-induced anxiety disorder; F19.282 Other psychoactive substance dependence with psychoactive substance-induced sleep disorder; F19.24 Other psychoactive substance dependence with psychoactive substance-induced mood disorder; F90.9 Attention-deficit hyperactivity disorder, unspecified type; I10 Essential (primary) hypertension; Z88.0 Allergy status to penicillin; Z59.00 Homelessness unspecified
CPT/HCPCS: 36415; 80053; 82962; 85027; 86780; 93005; 93010; C9803-CS; J0735; U0003; U0005